=== PATIENT | female | born 1975 | race Two or more races ===

== ENCOUNTER 2024-11-12 15:05 | Emergency (ER) | payer OTHER ==
[2024-11-12 15:18] VITALS: BP 147/90; PULSE 86; RESP 18; TEMP 98.4; BMI 29.2
[2024-11-12] MEDS ORDERED: ACETAMINOPHEN 500 MG TABLET (FP) ONE (16:49)
[2024-11-12] MEDS: ACETAMINOPHEN 500 MG TABLET (FP) PO ONE (16:53)
== END 2024-11-12 17:00 | disposition home or self-care (01) ==
LOC: JERFT 15:05
DX: N64.4 Mastodynia (principal); R07.89 Other chest pain; V47.6XXA Car passenger injured in collision with fixed or stationary object in traffic accident, initial encounter; Y92.410 Unspecified street and highway as the place of occurrence of the external cause
CPT/HCPCS: 93005; 93010; 99283-25